=== PATIENT | male | born 1945 | race African-American/Black ===

== ENCOUNTER 2018-07-28 09:45 | Emergency (ER) | payer MEDICARE, OTHER ==
[~2018-07-28] VITALS: Ht 182.9 cm; Wt 61.2 kg
[~2018-07-28 09:45] MED LIST: AMLO5TAB10 PO; CARV12.511 PO; CITA40TA5 PO; HYDR-3164 PO; MIRT30TA3 PO; ORPH100T PO; TAMS0.4C2 PO
[2018-07-28 09:53] VITALS: BP 147/80
--- NOTE | 2018-07-28 10:14 | PHYS DOC ---
Past Medical History Past Medical History: Hypertension Past Surgical History: Other Additional Past Surgical Histo: ULCER, HERNIA Alcohol Use: Occasionally Drug Use: None Adult General Chief Complaint Chief Complaint: LOWER EXT PAIN HPI HPI Patient is a 73 year old male who is presenting with a chief complaint of knee pain. He crossed his knees for a prolonged period on Thursday he has had posterior right knee joint pain since that time increased with bearing weight his leg gave out last night he took [place] with some improvement symptoms are moderate dull nonradiating no numbness or tingling did have a back injection 3 days ago no fever no chest pain no other symptoms symptoms are moderate Review of Systems Review of Systems Constitutional: Denies fever or chills [] Eyes: Denies change in visual acuity, redness, or eye pain [] HENT: Denies nasal congestion or sore throat [] Respiratory: Denies cough or shortness of breath [] Cardiovascular: No additional information not addressed in HPI [] GI: Denies abdominal pain, nausea, vomiting, bloody stools or diarrhea [] Neurologic: Denies headache, focal weakness or sensory changes [] Endocrine: Denies polyuria or polydipsia [] All other systems were reviewed and found to be within normal limits, except as documented in this note. Current Medications Current Medications Current Medications Medications (Trade) Dose Ordered Sig/Miriam Start Time Stop Time Status Last Admin Dose Admin Acetaminophen/ Hydrocodone Bitart (Lortab 5/325) 2 tab 1X ONCE 07/28/18 10:15 07/28/18 10:16 DC 07/28/18 10:37 2 TAB Ondansetron HCl (Zofran Odt) 4 mg 1X ONCE 07/28/18 10:15 07/28/18 10:16 DC 07/28/18 10:36 4 MG Allergies Allergies Allergies Coded Allergies Type Severity Reaction Last Updated Verified cyclobenzaprine HCl Adverse Reaction Intermediate shakes 01/31/15 No Physical Exam Physical Exam Constitutional: Well developed, well nourished, no acute distress, non-toxic appearance. [] HENT: Normocephalic, atraumatic, bilateral external ears normal, oropharynx moist, no oral exudates, nose normal. [] Eyes: PERRLA, EOMI, conjunctiva normal, no discharge. [] Neck: Normal range of motion, no tenderness, supple, no stridor. [] Pulmonary: Normal respiratory effort no increased work of breathing no obvious chest wall trauma Abdomen: Bowel sounds normal, soft, no tenderness, no masses, no pulsatile masses. [] Skin: Warm, dry, no erythema, no rash. [] Back: No tenderness, no CVA tenderness. [] Extremities: There is tenderness to palpation noted to the right knee posteriorly as well as anteriorly no obvious deformity no erythema range of motion is intact actively with minimal pain pedal pulses intact Neurologic: Alert and oriented X 3, normal motor function, normal sensory function, no focal deficits noted. [] Psychologic: Affect normal, judgement normal, mood normal. [] Current Patient Data Vital Signs Vital Signs Date Time Temp Pulse Resp B/P (MAP) Pulse Ox O2 Delivery O2 Flow Rate FiO2 07/28/18 10:37 16 94 Room Air 07/28/18 09:53 98.4 70 147/80 (102) 98.4 EKG EKG [] Radiology/Procedures Radiology/Procedures [] Impressions: IMPRESSION: 1. No acute osseous findings. 2. Mild tricompartmental degenerative changes. Electronically signed by: Gary Jerry MD (07/28/2018 10:59 AM) [place] [id number] DICTATED and SIGNED BY: GARY JERRY MD DATE: 07/28/18 1055ON: There is no sonographic evidence of deep vein thrombosis in the right lower extremity Electronically signed by: Conner Greene MD (07/28/2018 11:33 AM) [facility] DICTATED and SIGNED BY: CONNER GREENE MD DATE: 07/28/18 1132 Course & Med Decision Making Course & Med Decision Making Pertinent Labs and Imaging studies reviewed. (See chart for details) pain control, no obvious findings, perhaps knee sprain or worsening of arthritis no signs of extremity ischemia sepotic joint dvt etc[] Dragon Disclaimer Dragon Disclaimer This electronic medical record was generated, in whole or in part, using a voice recognition dictation system. Departure Departure Impression: Primary Impression: Right knee pain Disposition: 01 HOME, SELF-CARE Condition: STABLE Referrals: ROSA QUINTANA MD (PCP) Scripts Hydrocodone/Apap 5-325 (NORCO 5-325 TABLET) 1 Each Tablet 1-2 EACH PO PRN Q6HRS PRN for PAIN, #15 as needed for pain Prov: JARED MELTON MD 07/28/18 JARED MELTON MD Jul 28, 2018 10:14
[2018-07-28] MEDS ORDERED: HYDROcodone/APAP 5/325MG 1 TAB TABLET PO ONE (10:15)
[2018-07-28] MEDS ORDERED: ONDANSETRON ODT 4 MG TAB.RAPDIS. PO ONE (10:15)
[2018-07-28] MEDS ORDERED: HYDR-3164 PO (11:02)
--- NOTE | 2018-07-28 11:03 | RAD ---
Examination: 3 views of the right knee HISTORY: History of right knee pain COMPARISON: None available FINDINGS: The alignment of the knee joint grossly appears unremarkable. No acute fracture or dislocation identified. Mild joint space loss identified in the medial, lateral, patellofemoral compartments. IMPRESSION: 1. No acute osseous findings. 2. Mild tricompartmental degenerative changes. Electronically signed by: Gary March MD (07/28/2018 10:59 AM) [facility]
--- NOTE | 2018-07-28 11:36 | RAD ---
Right lower extremity venous ultrasound, 07/28/2018 : History: Posterior knee pain Duplex evaluation including grayscale, color flow and spectral Doppler analysis was performed. The femoral and popliteal veins show no filling defects to suggest DVT. The visualized deep veins in the right calf are unremarkable. IMPRESSION: There is no sonographic evidence of deep vein thrombosis in the right lower extremity Electronically signed by: Conner Greene MD (07/28/2018 11:33 AM) [facility]
== END 2018-07-28 11:30 | disposition home or self-care (01) ==
LOC: ER 09:45
DX: M25.561 Pain in right knee (principal); I10 Essential (primary) hypertension; Z88.8 Allergy status to other drugs, medicaments and biological substances
CPT/HCPCS: 73562; 93971; 99284; Q0162

== ENCOUNTER 2019-09-24 11:32 | Emergency (ER) | payer MEDICARE ==
[~2019-09-24] VITALS: Ht 182.9 cm; Wt 69.0 kg
[2019-09-24] MEDS ORDERED: ALPR1TAB2 PO (12:02)
[2019-09-24] MEDS ORDERED: OMEP40CA45 PO (12:03)
[2019-09-24] MEDS ORDERED: GABA600T7 PO (12:03)
[2019-09-24] MEDS ORDERED: FLUT16SP NS (12:04)
[2019-09-24 12:11] LABS: BASO % 1 % (0-3); EOS # 0.5 x10^3/uL (0.0-0.7); EOS % 8 % (0-3); HEMATOCRIT 41.7 % (39.0-53.0); HEMOGLOBIN 13.4 g/dL (13.0-17.5); LYMPH # 1.1 x10^3/uL (1.0-4.8); LYMPH % 16 % (24-48); MEAN CORPUSCULAR HEMOGLOBIN 25 pg (25-35); MEAN CORPUSCULAR HGB CONC 32 g/dL (31-37); MEAN CORPUSCULAR VOLUME 78 fL (79-100); MONO # 0.4 x10^3/uL (0.0-1.1); MONO % 6 % (0-9); NEUT # 4.7 x10^3/uL (1.8-7.7); NEUT % 70 % (31-73); PLATELET COUNT 186 x10^3/uL (140-400); RED BLOOD COUNT 5.37 x10^6/uL (4.30-5.70); RED CELL DISTRIBUTION WIDTH 14.9 % (11.5-14.5); WHITE BLOOD COUNT 6.8 x10^3/uL (4.0-11.0)
--- NOTE | 2019-09-24 12:26 | PHYS DOC ---
Past Medical History Past Medical History: Anxiety, COPD, Depression, Hypertension Past Surgical History: Other Additional Past Surgical Histo: ULCER, HERNIA Smoking Status: Former Smoker Additional Information: 1/2 PPD FOR 60 YEARS Alcohol Use: Occasionally Drug Use: None General Adult EDM: Chief Complaint: SHORTNESS OF BREATH HPI: HPI: Patient is a 74 year old male with history of hypertension, COPD and 60 years of smoking who quit smoking in 2016, anxiety and deep who presents with complaint of shortness of breath. Patient complaining of intermittent episodes of shortness of breath since last night with mild activity without cough, fever and chills, headache, myalgia, nausea and vomiting, urinary symptoms. Patient states he gets episodes of anxiety and feels chest pressure. Patient states he had episode of shortness of breath and anxiety attack previously. Patient was seen at urgent care and had abnormal EKG and chest x-ray according to urgent care physician and sent to ER for more evaluation. Patient had O2 sat of 95% at room air at arrival to ER. Review of Systems: Review of Systems: Constitutional: Denies fever or chills. [] Eyes: Denies change in visual acuity. [] HENT: Denies nasal congestion or sore throat. [] Respiratory: Denies cough, reports shortness of breath. [] Cardiovascular: Reports chest pain, denies edema GI: Denies abdominal pain, nausea, vomiting, bloody stools or diarrhea. [] : Denies dysuria. [] Musculoskeletal: Denies back pain or joint pain. [] Integument: Denies rash. [] Neurologic: Denies headache, focal weakness or sensory changes. [] Endocrine: Denies polyuria or polydipsia. [] Lymphatic: Denies swollen glands. [] Psychiatric: Denies depression or anxiety. [] Heart Score: HEART Score for Chest Pain: HEART Score for Chest Pain Response (Comments) Value History Slighlty/Non-Suspicious 0 ECG Nonspecific Repolarizatio 1 Age > 65 2 Risk Factors 1 or 2 Risk Factors 1 Troponin < Normal Limit 0 Total 4 Risk Factors: Risk Factors: DM, Current or recent (<one month) smoker, HTN, HLP, family history of CAD, obesity. Risk Scores: Score 0 - 3: 2.5% MACE over next 6 weeks - Discharge Home Score 4 - 6: 20.3% MACE over next 6 weeks - Admit for Clinical Observation Score 7 - 10: 72.7% MACE over next 6 weeks - Early Invasive Strategies Allergies: Allergies: Allergies Coded Allergies Type Severity Reaction Last Updated Verified cyclobenzaprine HCl Adverse Reaction Intermediate eze 09/24/19 No Physical Exam: PE: Constitutional: Well developed, well nourished, no acute distress, non-toxic appearance. [] HENT: Normocephalic, atraumatic, bilateral external ears normal, oropharynx moist, no oral exudates, nose normal. [] Eyes: PERRLA, EOMI, conjunctiva normal, no discharge. [] Neck: Normal range of motion, no tenderness, supple, no stridor. [] Cardiovascular:Heart rate regular rhythm, no murmur [] Lungs & Thorax: Bilateral breath sounds clear to auscultation [] Abdomen: Bowel sounds normal, soft, no tenderness, no masses, no pulsatile masses. [] Skin: Warm, dry, no erythema, no rash. [] Back: No tenderness, no CVA tenderness. [] Extremities: No tenderness, no cyanosis, no clubbing, ROM intact, no edema. [] Neurologic: Alert and oriented X 3, normal motor function, normal sensory function, no focal deficits noted. [] Psychologic: Affect normal, judgement normal, mood normal. [] Current Patient Data: Labs: Laboratory Tests Test 09/24/19 11:55 White Blood Count 6.8 x10^3/uL (4.0-11.0) Red Blood Count 5.37 x10^6/uL (4.30-5.70) Hemoglobin 13.4 g/dL (13.0-17.5) Hematocrit 41.7 % (39.0-53.0) Mean Corpuscular Volume 78 fL (79-100) L Mean Corpuscular Hemoglobin 25 pg (25-35) Mean Corpuscular Hemoglobin Concent 32 g/dL (31-37) Red Cell Distribution Width 14.9 % (11.5-14.5) H Platelet Count 186 x10^3/uL (140-400) Neutrophils (%) (Auto) 70 % (31-73) Lymphocytes (%) (Auto) 16 % (24-48) L Monocytes (%) (Auto) 6 % (0-9) Eosinophils (%) (Auto) 8 % (0-3) H Basophils (%) (Auto) 1 % (0-3) Neutrophils # (Auto) 4.7 x10^3/uL (1.8-7.7) Lymphocytes # (Auto) 1.1 x10^3/uL (1.0-4.8) Monocytes # (Auto) 0.4 x10^3/uL (0.0-1.1) Eosinophils # (Auto) 0.5 x10^3/uL (0.0-0.7) Basophils # (Auto) 0.0 x10^3/uL (0.0-0.2) Laboratory Tests 09/24/19 11:55 Vital Signs: Vital Signs Date Time Temp Pulse Resp B/P (MAP) Pulse Ox O2 Delivery O2 Flow Rate FiO2 09/24/19 11:39 98.6 56 16 160/87 (111) 97 Room Air 98.6 EKG: EKG: EKG interpreted by me. EKG at 1142 showed sinus bradycardia at rate of 56, abnormal right axis deviation, T wave abnormality in lateral leads, no acute ST and T wave elevation. Radiology/Procedures: Radiology/Procedures: [facility] [address] [place] [address] IMAGING REPORT Signed PATIENT: BRENDEN MICHELLE ACCOUNT: [id number] : 1945 LOCATION: ER AGE: 74 SEX: M EXAM STATUS: PRE ER ORD. PHYSICIAN: LE SIMON MD REASON: Shortness of breath PROCEDURE: PORTABLE CHEST 1V PORTABLE CHEST 1V INDICATION: Dyspnea. COMPARISON STUDY: 05/31/2016. FINDINGS: Lungs: Low lung volume. Mild bibasilar opacities. The tracheobronchial tree and hilar structures are normal. Pleura: No pleural effusion or pneumothorax. Heart and Mediastinum: The cardiomediastinal silhouette is normal. Atherosclerotic thoracic aorta. Bones and Soft Tissues: The bones and soft tissues are within normal limits. IMPRESSION: Low lung volume with mild bibasilar opacities, probably subsegmental atelectasis. Electronically signed by: Gaudencio Pitt MD (09/24/2019 12:29 PM) [id number] DICTATED and SIGNED BY: GAUDENCIO PITT MD DATE: 09/24/19 1229 Course & Med Decision Making: Course & Med Decision Making Pertinent Labs and Imaging studies reviewed. (See chart for details) Evaluation of patient in ER showed 74-year-old male patient with history of anxiety and depression and complaining of shortness of breath and chest tightness since last night with episodes of anxiety. Patient had O2 sat of more than 95% on room air with unremarkable physical exam and vital sign. Labs and chest x-ray was unremarkable. Plan to discharge patient home with diagnosis of anxiety about health. I've spoken with the patient and/or caregivers. I've explained the patient's condition, diagnosis and treatment plan based on information available to me at this time. I've answered the patient's and/or caregivers questions and addressed any concerns. The patient and/or caregivers have a good understanding the patient's diagnosis, condition and treatment plan as can be expected at this point. Vital signs have been stabilized. The patient's condition is stable for discharge from the emergency department. The patient will pursue further outpatient evaluation with her primary care provider or other designated consulting physician as outlined in the discharge instructions. Patient and/or caregivers are agreeable to this plan of care and follow-up instructions have been explained in detail. The patient and/or caregivers have received these instructions in written format and expressed understanding of these discharge instructions. The patient and her caregivers are aware that if any significant change in condition or worsening of symptoms should prompt him to immediately return to this of the closest emergency department. If an emergent department is not readily available I would encourag e him to call 911. [place] Disclaimer: [place] Disclaimer: This electronic medical record was generated, in whole or in part, using a voice recognition dictation system. Departure Departure Impression: Primary Impression: Panic attack Additional Impression: COPD (chronic obstructive pulmonary disease) Qualified Codes: J44.9 - Chronic obstructive pulmonary disease, unspecified Disposition: HOME, SELF-CARE (At 1421) Condition: STABLE Referrals: ROSA QUINTANA MD (PCP) Patient Instructions: Anxiety and Panic Attacks, Chronic Obstructive Pulmonary Disease Additional Instructions: Continue current medication Follow-up with your primary care physician in 3-5 days Return to ER if not getting better LE SIMON MD Sep 24, 2019 12:26
--- NOTE | 2019-09-24 12:32 | RAD ---
PORTABLE CHEST 1V INDICATION: Dyspnea. COMPARISON STUDY: 05/31/2016. FINDINGS: Lungs: Low lung volume. Mild bibasilar opacities. The tracheobronchial tree and hilar structures are normal. Pleura: No pleural effusion or pneumothorax. Heart and Mediastinum: The cardiomediastinal silhouette is normal. Atherosclerotic thoracic aorta. Bones and Soft Tissues: The bones and soft tissues are within normal limits. IMPRESSION: Low lung volume with mild bibasilar opacities, probably subsegmental atelectasis. Electronically signed by: Kike Pitt MD (09/24/2019 12:29 PM) [id number]
[2019-09-24 12:54] LABS: INFLUENZA A PATIENT NEGATIVE (NEGATIVE); INFLUENZA B PATIENT NEGATIVE (NEGATIVE)
[2019-09-24 13:42] LABS: CALCIUM 8.6 mg/dL (8.5-10.1); CREATININE 0.7 mg/dL (0.7-1.3); POTASSIUM 3.6 mmol/L (3.5-5.1)
[2019-09-24 13:53] LABS: D-DIMER 0.63 ug/mlFEU (0.00-0.50)
[2019-09-24 13:56] LABS: ALBUMIN 3.4 g/dL (3.4-5.0); ALBUMIN/GLOBULIN RATIO 0.9 (1.0-1.7); TOTAL BILIRUBIN 0.6 mg/dL (0.2-1.0); TOTAL PROTEIN 7.3 g/dL (6.4-8.2)
[2019-09-24 14:31] VITALS: BP 153/85
--- NOTE | 2019-09-24 20:45 | EKG ---
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
== END 2019-09-24 14:41 | disposition home or self-care (01) ==
LOC: ER 11:32
DX: J44.9 Chronic obstructive pulmonary disease, unspecified (principal); F41.0 Panic disorder [episodic paroxysmal anxiety]; I10 Essential (primary) hypertension; Z87.891 Personal history of nicotine dependence; Z88.8 Allergy status to other drugs, medicaments and biological substances
CPT/HCPCS: 36415; 71045; 80053; 82550; 83605; 83880; 84484; 85025; 85379; 85610; 87804; 93005; 99285-25

== ENCOUNTER → 2020-12-12 | Day surgery (SDC) | payer MEDICARE ==
[~2020-12-12] VITALS: Ht 182.9 cm; Wt 145.0 kg
[~2020-12-12] MED LIST changes: +ALBU2.5V8 INH; +ALPR1TAB2 PO; +AMLO-186 PO; -AMLO5TAB10 PO; +FLUT16SP NS; +GABA600T7 PO; +HYDROmorphone 2 MG/ML VIAL IVP PRN; +IV RINGERS,LACTATED 1000ML 1,000 ML IV SCH; +LIDOCAINE 2% PF 5 ML VIAL. ONE; +MIRT-8 PO; -MIRT30TA3 PO; +MORPHINE SULFATE 2 MG/ML INJ. IVP PRN; +OMEP40CA7 PO; +PROCHLORPERAZINE 10 MG/2 ML VIAL. IVP PRN; +PROPOFOL 10 MG/ML (20ML) VIAL. IV ONE; +fentaNYL PF VIAL 100 MCG/2 ML VIAL IVP PRN
[2020-12-12 07:42] VITALS: BP 155/87
[2020-12-12 08:56] VITALS: BP 159/91
--- NOTE | 2020-12-12 09:30 | CONS ---
DATE OF CONSULTATION: 12/12/2020 REASON FOR CONSULTATION: History of colon polyps. HISTORY OF PRESENT ILLNESS: A 75-year-old -Indian male with past medical history significant for hypertension as well as gastroesophageal reflux disease, history of colonic polyps, depression, duodenal ulcers, seen here for colon exam. Bowel habits are regular without diarrhea or constipation. There has been no melena and/or hematochezia. Previous colonoscopy did reveal a tubular adenoma. He is otherwise without additional complaints. PAST MEDICAL HISTORY: Colon polyps, hypertension, GERD, depression, duodenal ulcers. ALLERGIES: CYCLOBENZAPRINE. MEDICATIONS: Include albuterol, carvedilol, fluticasone, gabapentin, mirtazapine, omeprazole, and tamsulosin. SOCIAL HISTORY: Smoker and drinker. FAMILY HISTORY: Noncontributory. PREVIOUS SURGICAL HISTORY: Significant for peptic ulcer disease. REVIEW OF SYSTEMS: Per records. PHYSICAL EXAMINATION: GENERAL: Reveals a well-nourished, well-developed -Indian male who is alert, cooperative, in no acute distress. VITAL SIGNS: Temperature is 98.1, pulse 70, respirations 18. LUNGS: Clear. CARDIOVASCULAR: Reveals S1, S2, without S3, S4 or appreciable murmur. ABDOMEN: Reveals a soft abdomen, normal bowel sounds, without appreciable hepatosplenomegaly. EXTREMITIES: Reveal no cyanosis, clubbing or edema. IMPRESSION: History of colonic polyps. Surveillance exam is recommended at this time. Risks and benefits of procedure were discussed. The patient is willing to proceed at this time. MARCIO DR: Kelli TID: [id number]
== END | disposition home or self-care (01) ==
LOC: ENDOS 06:56
PROVIDERS: ATTEND Internal Medicine Gastroenterology
DX: Z12.11 Encounter for screening for malignant neoplasm of colon (principal); K64.0 First degree hemorrhoids; K57.30 Diverticulosis of large intestine without perforation or abscess without bleeding; I10 Essential (primary) hypertension; K21.9 Gastro-esophageal reflux disease without esophagitis; F32.9 Major depressive disorder, single episode, unspecified; F41.9 Anxiety disorder, unspecified; J44.9 Chronic obstructive pulmonary disease, unspecified; N40.0 Benign prostatic hyperplasia without lower urinary tract symptoms; Z86.010 Personal history of colon polyps; Z87.891 Personal history of nicotine dependence; Z79.899 Other long term (current) drug therapy; Z98.890 Other specified postprocedural states; Z72.89 Other problems related to lifestyle; Z88.8 Allergy status to other drugs, medicaments and biological substances
CPT/HCPCS: G0105; J2704; 45378

== ENCOUNTER → 2021-06-20 | Outpatient (CLI) | payer MEDICARE ==
[2020-12-12 08:56] VITALS: BP 159/91
[~2021-06-20] MED LIST changes: -CITA40TA5 PO; +CITA40TA6 PO; -HYDROmorphone 2 MG/ML VIAL IVP PRN; -IV RINGERS,LACTATED 1000ML 1,000 ML IV SCH; -LIDOCAINE 2% PF 5 ML VIAL. ONE; -MORPHINE SULFATE 2 MG/ML INJ. IVP PRN; -PROCHLORPERAZINE 10 MG/2 ML VIAL. IVP PRN; -PROPOFOL 10 MG/ML (20ML) VIAL. IV ONE; -fentaNYL PF VIAL 100 MCG/2 ML VIAL IVP PRN
[2021-06-20 14:56] LABS: BASO # 0.1 x10^3/uL (0.0-0.2); BASO % 2 % (0-3); EOS # 0.6 x10^3/uL (0.0-0.7); EOS % 15 % (0-3); HEMATOCRIT 36.9 % (39.0-53.0); HEMOGLOBIN 11.8 g/dL (13.0-17.5); LYMPH # 1.4 x10^3/uL (1.0-4.8); LYMPH % 38 % (24-48); MEAN CORPUSCULAR HEMOGLOBIN 24 pg (25-35); MEAN CORPUSCULAR HGB CONC 32 g/dL (31-37); MEAN CORPUSCULAR VOLUME 76 fL (79-100); MONO # 0.4 x10^3/uL (0.0-1.1); MONO % 10 % (0-9); NEUT # 1.3 x10^3/uL (1.8-7.7); NEUT % 34 % (31-73); PLATELET COUNT 157 x10^3/uL (140-400); RED BLOOD COUNT 4.82 x10^6/uL (4.30-5.70); WHITE BLOOD COUNT 3.7 x10^3/uL (4.0-11.0)
== END ==
LOC: ONCLAB 14:07
PROVIDERS: ATTEND Internal Medicine Hematology & Oncology
DX: D61.818 Other pancytopenia (principal); E61.1 Iron deficiency
CPT/HCPCS: 82525; 82607; 82668; 82728; 82746; 82784; 83010; 83520; 83540; 83550; 84165; 85025; 85045; 86334

== ENCOUNTER → 2021-10-02 | Outpatient (CLI) | payer MEDICARE ==
[2020-12-12 08:56] VITALS: BP 159/91
[2021-10-02 14:18] LABS: BASO % 1 % (0-3); EOS # 0.9 x10^3/uL (0.0-0.7); EOS % 27 % (0-3); HEMATOCRIT 36.2 % (39.0-53.0); HEMOGLOBIN 11.6 g/dL (13.0-17.5); LYMPH # 1.3 x10^3/uL (1.0-4.8); LYMPH % 40 % (24-48); MEAN CORPUSCULAR HEMOGLOBIN 24 pg (25-35); MEAN CORPUSCULAR HGB CONC 32 g/dL (31-37); MEAN CORPUSCULAR VOLUME 74 fL (79-100); MONO # 0.4 x10^3/uL (0.0-1.1); MONO % 12 % (0-9); NEUT # 0.6 x10^3/uL (1.8-7.7); NEUT % 20 % (31-73); PLATELET COUNT 208 x10^3/uL (140-400); RED BLOOD COUNT 4.91 x10^6/uL (4.30-5.70); RED CELL DISTRIBUTION WIDTH 15.5 % (11.5-14.5); WHITE BLOOD COUNT 3.3 x10^3/uL (4.0-11.0)
[2021-10-02 15:27] LABS: % EOS 23 % (0-5); % LYMPHS 36 % (24-48); % MONOS 8 % (0-10); % SEGS 33 % (35-66); HYPOCHROMIA SLIGHT; PLT ESTIMATE ADEQUATE (ADEQUATE)
[2021-10-02 15:28] LABS: MICROCYTOSIS SLIGHT
== END ==
LOC: ONCLAB 12:45
PROVIDERS: ATTEND Internal Medicine Hematology & Oncology
DX: D50.0 Iron deficiency anemia secondary to blood loss (chronic) (principal); D61.818 Other pancytopenia
CPT/HCPCS: 36415; 82728; 83540; 83550; 85007; 85025